=== PATIENT | male | born 1970 | race Caucasian/White ===

== ENCOUNTER 2017-06-27 11:00 | Inpatient (IN) | payer OTHER ==
--- NOTE | ~2017-06-27 | CO ---
Unit #: [id number] #: [id number] Patient: JADE HINES [id number] [place] [address] [id number] I MR#: [id number] NAME: JADE HINES ROOM: P121 Age: 47 Sex: M Admission Date: 06/27/2017 : 1970 Attending Physician: Juarez Lee M.D. Primary Care Physician: Generic Doctor Not In System Consultation Date: 07/08/2017 CONSULTATION REPORT SUBJECTIVE Jade is a 47-year-old who was admitted with scattered areas of a vesicular rash. He reported that these areas are very irritating and itchy. He had been outside for some time and thought that he had come in contact with something like poison tiffany. OBJECTIVE GENERAL: Alert, well nourished, in no apparent distress. VITAL SIGNS: Blood pressure 120/70, heart rate 80, respirations 16, temperature 98.6. SKIN: Warm and dry. He has scattered small areas of vesicular rash along his arms, neck, and between his legs. There is evidence of excoriation. ASSESSMENT Contact dermatitis. PLAN Depo-Medrol 80 mg IM now. Caladryl lotion t.i.d. Dictated by... Shakila Fernandez PCelioACelio-Deangelo. for Parth Lopes/liang TD: 07/10/2017 19:27 JOB #: [id number] CONSULTATION REPORT Page 1 of 1 X Shakila Fernandez CONSULTATION REPORT
--- NOTE | ~2017-06-27 | PN ---
Unit #: [id number] #: [id number] Patient: JADE HINES [id number] [facility] [address] [place] [address] [id number] I MR#: [id number] NAME: JADE HINES ROOM: P132 Age: 47 Sex: M Admission Date: 06/27/2017 : 1970 Attending Physician: Juaerz Lee M.D. Admitting Physician: Juarez Lee M.D. Primary Care Physician: Generic Doctor Not In System [facility] PROGRESS NOTES DATE 06/29/2017 DISCUSSION The patient continues to complain of dysphoric mood but is active within the therapeutic milieu. He has tolerated initiation of Depakote and Seroquel without complaint. I have spoken with the patient today frankly regarding realistic expectations of inpatient care. Dictated by... Juarez Lee M.D. CB/marita TD: 06/29/2017 12:26 JOB #: [id number] [facility] PROGRESS NOTES Page 1 of 1 X Juarez Lee MD X PROGRESS NOTE
--- NOTE | ~2017-06-27 | HP ---
Unit #: [id number] #: [id number] Patient: JADE HINES [id number] [place] [address] [id number] I MR#: [id number] NAME: JADE HINES. ROOM: P132 Age: 47 Sex: M Admission Date: 06/27/2017 : 1970 Attending Physician: Juarez Lee M.D. Admitting Physician: Juarez Lee M.D. Primary Care Physician: Generic Doctor Not In System HISTORY AND PHYSICAL HISTORY OF PRESENT ILLNESS Jade is a 47 year old admitted to [address] [place] [address] with depression, verbalizing wanting to hurt himself and increased paranoia. PAST MEDICAL HISTORY High blood pressure. PAST SURGICAL HISTORY Nothing reported. ALLERGIES No known drug allergies. SOCIAL HISTORY He does not smoke. Drinks alcohol on occasion. Admits to a history of illicit substance abuse to include IV opioids and abusing benzodiazepines. FAMILY HISTORY Medically noncontributory. REVIEW OF SYSTEMS He does not answer all questions appropriately. There were no reports of nausea, vomiting or diarrhea. He has had no cough or increased temperature. CURRENT MEDICATIONS 1. Zyprexa Zydis 10 mg q. 8 hours p.r.n. 2. Milk of Magnesia p.r.n. 3. Maalox p.r.n. 4. Tylenol p.r.n. PHYSICAL EXAMINATION GENERAL: Alert, well-nourished, in no apparent distress. VITAL SIGNS: Blood pressure 134/100, heart rate 94, respirations 16, temperature 98.6. SKIN: Warm and dry without rash or lesion. HEENT: Normocephalic. TMs not viewed. Oral and nasal passages clear. Conjunctivae clear. PERRLA. EOMs intact. NECK: Supple without lymphadenopathy or thyromegaly. HEART: Regular rate and rhythm without murmur. LUNGS: Clear. ABDOMEN: Soft, nontender. : Not done. Unit #: [id number] #: [id number] Patient: JADE HINES EXTREMITIES: No evidence of cyanosis, clubbing or edema. Moves all without focal deficit. NEUROLOGICAL: Unable to complete extended exam. He does move all extremities without focal deficit. Hand crusher dry ground mica is equal and gait is normal. IMPRESSION 1. Psychiatric admission. 2. High blood pressure, not controlled on admission. He is admitted on no blood pressure medication. RECOMMENDATIONS PSYCHIATRIC: Per psychiatrist. MEDICAL: 1. See no contraindication to participate in facility's activities. 2. Start Norvasc 5 mg 1 p.o. daily. MEDICAL PROGNOSIS Good. MEDICAL CONDITION Stable. Dictated by... Shakila Fernandez P.A.-C. for Parth Lopes/naomi TD: 06/28/2017 15:53 JOB #: [id number] HISTORY AND PHYSICAL Page 1 of 1 X Shakila Fernandez X HISTORY AND PHYSICAL
--- NOTE | ~2017-06-27 | CO ---
Unit #: [id number] #: [id number] Patient: JADE HINES [id number] [place] [address] [id number] MR#: [id number] NAME: JADE HINES. ROOM: P121 Age: 47 Sex: M Admission Date: 06/27/2017 : 1970 Attending Physician: Juarez Lee M.D. Primary Care Physician: Generic Doctor Not In System CONSULTATION REPORT Medical consult was requested by Dr. Lee and completed on 06/30/2017. HISTORY OF PRESENT ILLNESS Jade reports that he is homeless and he has been outside a lot, about a week ago he started noticing poison tiffany on his back and his arms. He also recently started having oozing from these red lesions. The spots are very itchy especially at night. He was given IM steroid, initially got little better, but now has started to have quite a bit of itching again. He has no other complaints. PHYSICAL EXAMINATION CARDIAC: Regular rate and rhythm. No murmurs, gallops, or rubs. RESPIRATORY: Clear to auscultation bilaterally. SKIN: Erythemic lesion on back and bilateral arms with some yellow crusting. ASSESSMENT AND PLAN Contact dermatitis. We will begin Claritin and Zantac daily and Benadryl q.h.s. We will also begin triamcinolone cream up to t.i.d. as needed for itching. The patient is instructed to notify if any other lesions are present. If legs or abdomen are found to have poison tiffany, will possibly need oral steroid treatment. Dictated by... Opal Benavides/liang TD: 07/02/2017 16:55 JOB #: [id number] Unit #: [id number] #: [id number] Patient: JADE HINES CONSULTATION REPORT Page 1 of 1 X NICO PANDYA APRN CONSULTATION REPORT
--- NOTE | ~2017-06-27 | DS ---
Unit #: [id number] #: [id number] Patient: JADE HINES [id number] [facility] [address] [place] [address] [id number] I MR#: [id number] NAME: JADE HINES. ROOM: P121 Age: 47 Sex: M Admission Date: 06/27/2017 : 1970 Discharge Date: 07/01/2017 Attending Physician: Juarez Lee M.D. Primary Care Physician: Generic Doctor Not In System DISCHARGE SUMMARY REASON FOR ADMISSION The patient is a 47-year-old white male, admitted with increasing depression and suicidal ideation. The patient was also reporting paranoid thinking. HOSPITAL COURSE The patient was admitted to the [address] [place] [address] unit and placed on suicide precautions. His paranoid thoughts were thought to have been due to methamphetamine and resolved rather rapidly after his admission to the hospital. He became more pleasant and cooperative in his interactions with peers. He had requested re-initiation of previously prescribed psychotropic medications including Seroquel and Depakote and these were restarted. By 07/01/2017, the patient was in bright spirits and requested discharge and it was so ordered. FINAL DIAGNOSES Bipolar disorder, most recent episode manic; methamphetamine use disorder with intoxication; and perceptual disturbance, resolved. DISPOSITION ON DISCHARGE The patient is discharged on the following medications: Depakote ER 500 mg two tablets at bedtime for mood stabilization, Seroquel 100 mg at bedtime for mood stabilization, lisinopril 10 mg daily for hypertension, Pepcid 20 mg daily for GERD, Benadryl 50 mg at bedtime p.r.n. insomnia, and Claritin 10 mg daily for environmental allergies. DIET AND ACTIVITY No dietary or physical restrictions were placed on the patient at the time of discharge. FOLLOWUP Follow up will take place through the auspices of community mental health resources in the [place], [place] area. PROGNOSIS The patient's prognosis is considered fair. Dictated by... Juarez Lee M.D. ADIN/liang Unit #: [id number] #: [id number] Patient: JADE HINES TD: 07/01/2017 14:27 JOB #: [id number] DISCHARGE SUMMARY Page 1 of 1 X Juarez Lee MD DISCHARGE SUMMARY
--- NOTE | ~2017-06-27 | PN ---
Unit #: [id number] #: [id number] Patient: JADE HINES [id number] [facility] [address] [place] [address] [id number] I MR#: [id number] NAME: JADE HINES ROOM: P121 Age: 47 Sex: M Admission Date: 06/27/2017 : 1970 Attending Physician: Juarez Lee M.D. Admitting Physician: Juarez Lee M.D. Primary Care Physician: Jonathan Doctor Not In System [facility] PROGRESS NOTES DATE 06/30/2017 DISCUSSION The patient is significantly brighter with initiation of medications and should be ready for discharge within the next couple of days. He is denying suicidal ideation at this time and is pleasant and cooperative during today's interview. Dictated by... Juarez Lee M.D. CB/iam TD: 06/30/2017 22:56 JOB #: [id number] [facility] PROGRESS NOTES Page 1 of 1 X Juarez Lee MD PROGRESS NOTE
--- NOTE | ~2017-06-27 | PA ---
Unit #: [id number] #: [id number] Patient: JADE HINES [id number] [place] [address] [id number] I MR#: [id number] NAME: JADE HINES. ROOM: P132 Age: 47 Sex: M Admission Date: 06/27/2017 : 1970 Date of Assessment: 06/28/2017 Attending Physician: Juarez Lee M.D. Admitting Physician: Juarez Lee M.D. Primary Care Physician: Generic Doctor Not In System PSYCHIATRIC ASSESSMENT IDENTIFYING INFORMATION The patient is a 47-year-old white male admitted voicing increasing paranoia. INFORMANT(S) Patient. RELIABILITY Fair. CHIEF COMPLAINT None given. HISTORY OF PRESENT ILLNESS The patient is a 47-year-old white male admitted in transfer from [facility]. The patient had presented to that facility voicing increasing paranoia and depressed mood. The patient reports a history of treatment for methamphetamine abuse in the past. He has also been treated for opioid abuse. The patient reports that his last methamphetamine use was "about a week ago." The patient reports that he has been increasingly paranoid, fearful that people are watching him and he is fearful that he will act to harm others if these thoughts continue. The patient does report a history of treatment with Seroquel and Depakote in the past. He is presently unemployed. 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 This is the patient's first psychiatric hospitalization. He does report a history of diagnosis of bipolar disorder as an outpatient several years ago but he is currently on no prescribed psychotropic medications. The patient complains of poor sleep. He denies any loss of appetite. He continues to endorse positive paranoid delusional thinking. PAST PSYCHIATRIC HISTORY As above. FAMILY HISTORY The patient denies family history of psychiatric illness. SOCIAL HISTORY The patient is currently homeless. He reports a history of methamphetamine use as noted previously. He is the father of 4 children but has had no contact with them in 5 to 6 years. MEDICAL HISTORY The patient reports a history of hypertension. Unit #: [id number] #: [id number] Patient: JADE HINES MEDICATION HISTORY None. ALLERGIES None. MENTAL STATUS EXAM At this time, reveals the patient to be a well-developed, well-nourished white male appearing stated age. He is in no apparent physical distress at time of examination. He is awake, alert, oriented in all spheres. His mood is somewhat suspicious and irritable. His affect congruent. Speech is generally relevant and coherent. There are no gross deficits in memory or cognition noted. Intelligence is judged to be in the average range based on fund of knowledge. The patient is cooperative throughout the interview. He is currently reporting no suicidal or homicidal ideation. He does report positive paranoid delusional thinking. His judgement and insight appear to be significantly impaired. ASSETS AND LIABILITIES Patient's assets to be assessed. Liabilities, lack of resources. ADMITTING DIAGNOSES 1. Methamphetamine use disorder. 2. Bipolar disorder, unspecified by history. PSYCHIATRIC PLAN/TREATMENT GOALS The patient remains hospitalized for safety and stabilization. I will go ahead and restart Depakote and Seroquel as the patient does report a history of positive response to these medications. I have also spoken with the patient regarding the importance of abstinence from methamphetamine if he hopes further to be any resolution of his psychotic symptoms. DISCHARGE PLANNING Followup to take place through the auspices of community mental health resources in the [place], [place] area. ESTIMATED LENGTH OF STAY Three to five days. Dictated by... Juarez Lee M.D. ADIN/naomi TD: 06/28/2017 15:22 JOB #: [id number] Unit #: [id number] #: [id number] Patient: JADE HINES PSYCHIATRIC ASSESSMENT Page 1 of 1 X Juarez Lee MD X PSYCHIATRIC ASSESSMENT
== END 2017-07-01 16:47 | disposition home or self-care (01) | DRG 885 ==
LOC: P1S 15:07
DX: F31.9 Bipolar disorder, unspecified (principal); I10 Essential (primary) hypertension; Z59.0 Homelessness; L23.7 Allergic contact dermatitis due to plants, except food; F15.122 Other stimulant abuse with intoxication with perceptual disturbance; G47.00 Insomnia, unspecified; K21.9 Gastro-esophageal reflux disease without esophagitis
CPT/HCPCS: J1040